=== PATIENT | female | born 1980 | race Caucasian/White ===

== ENCOUNTER 2016-10-31 06:52 | Day surgery (SDC) | payer MEDICAID ==
[~2016-10-31 06:52] MED LIST: ADRENALIN1 MG/1 M3 GT; AMITRIPTYLINE H25 M1 GT; ARTIFICIAL TEAR1512 EACH EYE; BACLOFEN GT; BISACODYL5 M1 GT; CALCIUM WITH V1 EAC2 GT; CELEBREX200 M1 GT; CELEXA10 M1 GT; CYCLOBENZAPRINE10 M1 GT; DOCUSATE SODIUM GT; EFFEXOR XR75 M1 GT; ELIQUIS2.5 M1 GT; ENEMEEZ283 MG/5 M PR; EXPECTORANT GT; FIBER-LAX625 M1 GT; GABAPENTIN GT; HIPREX1 GM GT; LOVENOX30 MG/0.1 SC; MELATONIN10 M6 GT; NEURONTIN GT; NYSTATIN1 EA10 TOP; PERIDEX118 ML SSP; PROTONIX40 M2 GT; SANTYL30 G1 TP; SWEEN 24255 GM TP; TYLENOL GT; VITAMIN C500 M3 GT; VITAMIN D2000 UNI1 GT; [UNRECOGNIZED DRUG - OTHER] GT; [UNRECOGNIZED DRUG - OTHER] TP
== END 2016-10-31 14:00 ==
LOC: SRG 06:52 → SHSC 07:05 → ORE 09:48 → PACU 10:35 → SHSC 12:00
PROC: 0QPLX5Z Removal of External Fixation Device from Right Tarsal, External Approach (ICD-10-PCS; principal; 2016-10-31)
DX: S92.101B Unspecified fracture of right talus, initial encounter for open fracture (principal); S14.103A Unspecified injury at C3 level of cervical spinal cord, initial encounter; G82.50 Quadriplegia, unspecified; S93.314A Dislocation of tarsal joint of right foot, initial encounter; S22.029A Unspecified fracture of second thoracic vertebra, initial encounter for closed fracture; S22.42XA Multiple fractures of ribs, left side, initial encounter for closed fracture; N31.9 Neuromuscular dysfunction of bladder, unspecified; F32.9 Major depressive disorder, single episode, unspecified; K21.9 Gastro-esophageal reflux disease without esophagitis; J80 Acute respiratory distress syndrome; Z79.02 Long term (current) use of antithrombotics/antiplatelets; Z79.899 Other long term (current) drug therapy; Z91.5 Personal history of self-harm; Z87.820 Personal history of traumatic brain injury; Z98.1 Arthrodesis status; Z98.890 Other specified postprocedural states; V49.9XXA Car occupant (driver) (passenger) injured in unspecified traffic accident, initial encounter
CPT/HCPCS: J0690; J3010